=== PATIENT | female | born 1970 | race American Indian/Alaskan Native ===

== ENCOUNTER 2018-02-10 16:41 | Emergency (ER) | payer OTHER ==
[2018-02-10 16:50] VITALS: BMI 17.4
[2018-02-10 16:57] VITALS: RESP 18
[2018-02-10] MEDS ORDERED: Sodium Chloride 0.9% 1,000 ML IV ONE (17:25)
--- NOTE | 2018-02-10 17:28 | C.PDOC ---
History Of Present Illness 47 y/o female brought to ED by EMS with c/o acute low back pain developed while picking up small box at work. Patient states pain is localized to lumbar region associated with paresthesia to interior thighs and tingling. No other complaints at this time. Time Seen by Provider: 02/10/18 17:07 Chief Complaint (Nursing): Back Pain History Per: Patient History/Exam Limitations: no limitations Onset/Duration Of Symptoms: Hrs Current Symptoms Are (Timing): Still Present Quality Of Discomfort: "Pain" Past Medical History Reviewed: Historical Data, Nursing Documentation, Vital Signs Vital Signs: Last Vital Signs Temp 99.3 F 02/10/18 16:51 Pulse 98 H 02/10/18 16:51 Resp 18 02/10/18 16:51 BP 133/90 02/10/18 16:51 Pulse Ox 99 02/10/18 18:09 - Medical History PMH: No Chronic Diseases Surgical History: No Surg Hx Family History: States: No Known Family Hx - Social History Hx Alcohol Use: No Hx Substance Use: No Review Of Systems Constitutional: Negative for: Fever, Chills Respiratory: Negative for: Shortness of Breath Gastrointestinal: Negative for: Nausea, Vomiting, Abdominal Pain Musculoskeletal: Positive for: Back Pain Neurological: Negative for: Weakness, Numbness Physical Exam - Physical Exam Appears: Non-toxic, No Acute Distress Skin: Warm, Dry, No Rash Head: Atraumatic, Normacephalic Eye(s): bilateral: Normal Inspection Oral Mucosa: Moist Cardiovascular: Rhythm Regular Respiratory: Normal Breath Sounds, No Rales, No Rhonchi, No Wheezing Gastrointestinal/Abdominal: Soft, No Tenderness, No Guarding, No Rebound Back: No CVA Tenderness, No Paraspinal Tenderness, Other (sacral iliac tenderness bilaterally) Neurological/Psych: Oriented x3, Normal Speech, Normal Cognition, Normal Motor, Normal Sensation ED Course And Treatment - Laboratory Results Result Diagrams: 02/10/18 17:41 02/10/18 17:41 Lab Interpretation: Abnormal (++ glucose) O2 Sat by Pulse Oximetry: 99 (RA) Pulse Ox Interpretation: Normal Progress Note: toradol, Tramadol, IVF, insulin IV, ice pack to LS spine Reevaluation Time: 18:41 Reassessment Condition: Improved Medical Decision Making Medical Decision Making: lumbosacral sprain ? S1 disk protrusion of ? significance pt dramatically improved with ED tx and never any neurological deficits ok for opt f/u. Disposition Doctor Will See Patient In The: Office Counseled Patient/Family Regarding: Studies Performed, Diagnosis - Disposition Disposition: HOME/ ROUTINE Disposition Time: 18:42 Condition: GOOD Forms: [facility] ([place]) - Clinical Impression Clinical Impression: Low back strain - Scribe Statement The provider has reviewed the documentation as recorded by the Stephanieibfabiola Michael All medical record entries made by the Thao were at my direction and personally dictated by me. I have reviewed the chart and agree that the record accurately reflects my personal performance of the history, physical exam, medical decision making, and the department course for this patient. I have also personally directed, reviewed, and agree with the discharge instructions and disposition.
[2018-02-10] MEDS ORDERED: Sodium Chloride 0.9% 1,000 ML ONE (17:45)
[2018-02-10 17:47] LABS: BASO % 0.6 % (0.0-2.0); EOS % 0.6 % (0.0-4.0); HEMOGLOBIN 13.2 g/dL (11.0-16.0); LYMPH # 2.2 K/uL (1.0-4.3); LYMPH % 40.8 % (20.0-40.0); MEAN CELL VOLUME 84.9 fL (81.0-99.0); MEAN CORPUSCULAR HEMOGLOBIN 28.8 pg (27.0-31.0); MEAN PLATELET VOLUME 8.9 fL (7.2-11.7); MONO # 0.5 K/uL (0.0-0.8); MONO % 8.7 % (0.0-10.0); NEUT # 2.7 K/uL (1.8-7.0); NEUT % 49.3 % (50.0-75.0); RBC 4.58 Mil/uL (3.80-5.20); RED CELL DISTRIBUTION WIDTH 12.9 % (11.5-14.5); WHITE BLOOD COUNT 5.4 K/uL (4.8-10.8)
[2018-02-10 17:50] LABS: SQUAMOUS EPITHIAL 3 /hpf (0-5); URINE BACTERIA RARE (<OCC); URINE BILIRUBIN NEGATIVE (NEGATIVE); URINE BLOOD NEGATIVE (NEGATIVE); URINE CLARITY Clear (Clear); URINE COLOR Straw (YELLOW); URINE GLUCOSE (UA) 3+ mg/dL (Normal); URINE LEUKOCYTE ESTERASE NEG Leu/uL (Negative); URINE PROTEIN NEGATIVE (NEGATIVE); URINE UROBILINOGEN NORMAL mg/dL (0.2-1.0)
[2018-02-10 17:55] LABS: PROTHROMBIN TIME 11.2 SECONDS (9.7-12.2)
[2018-02-10] MEDS ORDERED: (Novolin R) Insulin Human Regular 100 units/ml vial IV STA (17:58)
[2018-02-10 18:09] LABS: ALB/GLOB RATIO 1.1 (1.0-2.1); ALBUMIN 4.2 g/dL (3.5-5.0); ALT/SGPT 18 U/L (9-52); AST/SGOT 18 U/L (14-36); BLOOD UREA NITROGEN 11 mg/dL (7-17); CALCIUM 9.9 mg/dl (8.6-10.4); GFR AFRICAN-AMERICAN > 60; GFR NON-AFRICAN AMERICAN > 60
[2018-02-10] MEDS ORDERED: (Novolin R) Insulin Human Regular 100 units/ml vial ONE (18:23)
--- NOTE | 2018-02-10 18:30 | CT ---
PROCEDURE: CT Lumbar Spine without contrast HISTORY: acute L3/4 pain lifting, no paresthesias COMPARISON: None. TECHNIQUE: Axial computed tomography images were obtained of the lumbar spine without the use of intravenous contrast. Coronal and sagittal reformatted images were created and reviewed. Radiation dose: Total exam DLP = 401.36 mGy-cm. This CT exam was performed using one or more of the following dose reduction techniques: Automated exposure control, adjustment of the mA and/or kV according to patient size, and/or use of iterative reconstruction technique. FINDINGS: VERTEBRAE: There is normal alignment of the lumbar vertebral bodies. There is normal lumbar lordosis. There is diffuse bone demineralization. There is no acute fracture, spondylolysis or spondylolisthesis. DISCS/SPINAL CANAL/NEURAL FORAMINA: L1-2: No large disc herniation, neural foraminal or spinal canal stenosis. L2-3: No large disc herniation, neural foraminal or spinal canal stenosis. L3-4: Mild posterior disc bulge. No neural foraminal or spinal canal stenosis. L4-5: Posterior disc bulge without central spinal canal stenosis. No neural foraminal narrowing. L5-S1: Posterior disc bulge with superimposed left posterolateral disc protrusion abuts the traversing S1 nerve root. Mild ligamentum flavum infolding contributes to mild spinal canal stenosis. No neural foraminal narrowing. PARASPINAL SOFT TISSUES: The paraspinous soft tissues are normal. OTHER FINDINGS: The uterus is enlarged and lobular. There is an apparent 3.7 x 3.9 cm hyperdense lesion in the right ovary. IMPRESSION: 1. Mild multilevel degenerative disc disease, worse at L5-S1 with a left posterolateral disc protrusion which abuts the exiting left S1 nerve root, also noted is mild spinal canal stenosis. 2. No acute fracture, spondylolysis or spondylolisthesis. 3. Enlarged lobular uterus may represent fibroid uterus. Also noted is a presumable 3.9 cm cyst in the right ovary. A dedicated pelvic ultrasound is recommended for further evaluation.
[2018-02-10 18:53] VITALS: BP 121/78; PULSE 88; TEMP 98.4; O2SAT 100
== END 2018-02-10 19:12 | disposition home or self-care (01) ==
LOC: C.ER 16:41
DX: S39.012A Strain of muscle, fascia and tendon of lower back, initial encounter (principal); X50.9XXA Other and unspecified overexertion or strenuous movements or postures, initial encounter; Y99.0 Civilian activity done for income or pay
CPT/HCPCS: 72131; 80053; 81001; 82948; 85025; 85610; 85730; 96361; 96374; 96375; 99284; J1885; J7030